=== PATIENT | male | born 1970 | race Caucasian/White ===

== ENCOUNTER 2019-05-05 16:07 | Observation (INO) ==
[2019-05-05] MEDS ORDERED: SODIUM CHLORIDE 0.9% 1000ML 1,000 ML IV ONE (16:27)
[2019-05-05 17:03] LABS: Basophils # (auto) 0.04 K/uL (0-0.2); Basophils % (auto) 0.5 %; Eosinophils # (auto) 0.35 K/uL (0-0.5); Eosinophils % (auto) 4.7 %; Hematocrit (blood only) 37.5 % (42-52); Immature Granulocytes # (auto) 0.02 K/uL (0.00-0.02); Immature Granulocytes % (auto) 0.3 %; Lymphocytes # (auto) 1.72 K/uL (1.2-3.4); Lymphocytes % (auto) 23.1 %; Mean Corpuscular Hemoglobin 29.1 pg (25-34); Mean Corpuscular Hgb Conc 34.7 g/dL (32-36); Mean Corpuscular Volume 84.1 fL (80-100); Mean Platelet Volume 8.5 fL (7.4-10.4); Monocytes # (auto) 0.66 K/uL (0.11-0.59); Monocytes % (auto) 8.9 %; Neutrophils # (auto) 4.65 K/uL (1.4-6.5); Neutrophils % (auto) 62.5 %; Platelet Count 250 K/uL (130-400); RDW Coefficient of Variation 12.5 % (11.5-14.5); RDW Standard Deviation 38.1 fL (36.4-46.3); Red Blood Count 4.46 M/uL (4.7-6.1); White Blood Count 7.44 K/uL (4.8-10.8)
[2019-05-05 17:15] LABS: Appearance Urine Cloudy (Clear); Bacteria Urine Automated Negative (Negative); Bilirubin Urine Negative (Negative); Blood Urine 3+ (Negative); Cast Urine Automated 0 /lpf (0-5); Color Urine Yellow; Glucose Urine UA Negative (Negative); Ketones Urine Negative (Negative); Leukocyte Esterase Urine Trace (Negative); Nitrite Urine Negative (Negative); Protein Urine Negative (Negative); RBC Urine Automated >30 /hpf (0-4); Specific Gravity Urine 1.021 (1.000-1.030); Urobilinogen Urine Negative (Negative)
[2019-05-05 17:20] LABS: Albumin Level 3.4 gm/dl (3.4-5.0); BUN Creatinine Ratio 10.9 (10-20); Calcium 8.7 mg/dl (8.5-10.1); Creatinine Clr Calc Pharmacy 54.1 ml/min; Est GFR (African American) 39.4; Potassium 3.8 mmol/L (3.5-5.1)
[2019-05-05 17:23] LABS: Albumin Globulin Ratio 0.9 (0.9-2); Bilirubin,Total 0.4 mg/dl (0.2-1); Globulin 3.8 gm/dl (2.5-4.0); Total Protein 7.2 gm/dl (6.4-8.2)
--- NOTE | 2019-05-05 18:04 | XRay Report ---
XR KUB/Abdomen 1 view CLINICAL HISTORY: left groin pain eval for stone flank pain COMPARISON STUDY: No previous studies for comparison. FINDINGS: The soft tissues, psoas shadows, renal outlines and intestinal gas pattern appear normal. T here is no evidence for bowel obstruction. No abnormal abdominal calcifications are seen. Possible di stal left ureteral calculus measuring 4 mm versus vascular calcification. IMPRESSION: 4 mm distal left ureteral calculus versus vascular calcification. Otherwise negative noreen dy The above report was generated using voice recognition software. It may contain grammatical, syntax or spelling errors. Electronically signed by: Kyle Diaz M.D. 05/05/2019 6:03 PM
--- NOTE | 2019-05-05 18:45 | History & Physical Report ---
Date of Service May 05, 2019 Assessment & Plan (1) Left ureteral calculus: This is a 49-year-old male with a PMH of hypertension and known left ureteral stone who presents with acute kidney injury. -Found to have left ureteral stone at [place] [facility] on April 26. CT abdomen pelvis without contrast revealed a 3 mm upper left ureteral calculus with minimal left hydronephrosis. -Repeat KUB shows distal migration of stone. Was due for follow-up imaging with [facility] urology nect week -KUB this evening with 4 mm distal left ureteral calculus versus vascular calcification. Otherwise negative study -Afebrile, no leukocytosis, urinalysis with 3+ blood, trace leuk esterase, no bacteria -IV fluids, strain urine, pain control -Routine urology consult for tomorrow. NPO after midnight (2) MADDI (acute kidney injury): Creatinine elevated at 2.2 today (previously 1.4 in January) -In setting of poor PO intake, L ureteral calculus, lisinopril-hctz and toradol use -Fluid resuscitation, hold lisinopril-hctz and toradol -May need repeat CT to evaluate for hydronephrosis. Will defer to urology service -Daily BMP (3) Hypertension: Elevated at 160/107 currently in setting of pain -Holding lisinopril/hctz -PRN hydralazine for SBP >170 DVT Ppx: SCDs for now Code status: FULL PCP: Has been seeing Mer Moore at [place]. Used to follow with Dr. Farmer. Dispo: Observation med surg. Patient seen in collaboration with Dr. Jack. Please see addendum. History of Present Illness Chief Complaint: maddi, renal colic Primary Care Provider: NO PCP This is a 49-year-old male with a PMH of hypertension and left ureteral stone who presents with abnormal lab work from PCP. Patient was initially found to have left ureteral stone at [place] [facility] on April 26. CT abdomen pelvis without contrast revealed a 3 mm upper left ureteral calculus with minimal left hydronephrosis. Followed up with Inez Dowell PA-C and [facility] urology in [place] and repeat KUB showed stone moving distally. Has been taking Darden and Toradol for pain control. Was seen by ANOOP Dowell again today for lab work and found to have elevated creatinine at 2.4 (most recent previous creatinine of 1.4 in January). Was told to follow-up in the ED for further evaluation. Was in severe pain over the weekend and had decreased p.o. intake. Still experiencing L suprapubic pain. No fever, chills, dysuria, gross hematuria, urinary urgency or frequency. Denies lightheadedness, visual changes, chest pain, palpitations, shortness of breath, nausea, vomiting, abdominal pain, diarrhea or constipation. Takes lisinopril-hydrochlorothiazide for hypertension. History of kidney stones in the past that he has passed without urological intervention. No known history of chronic kidney disease. Allergies Allergy/AdvReac Type Severity Reaction Status Date / Time amoxicillin Allergy Unknown hives Verified 05/05/19 17:40 Home Medications Home Medications Medication Instructions Recorded Confirmed Type ketorolac 10 mg PO QID PRN 05/05/19 05/05/19 History lisinopril-hydrochlorothiazide 1 tab PO DAILY 05/05/19 05/05/19 History tamsulosin 0.4 mg PO DAILY 05/05/19 05/05/19 History Past Med/Surg History Surgical History H/O wisdom tooth extraction (Chronic) Family History Other Heart disease Hypertension Social History Preferred Language: Khmer marital status: current occupational status: employed Feels Safe at Home: Yes Smoking Status: Never smoker Hx Alcohol Use: Yes Alcohol Intake Frequency: Weekly Hx Substance Use: No Review of Systems Review of Systems: At least ten systems reviewed and negative except as noted in the HPI. Physical Exam Physical Exam: General Appearance: WD/WN, vitals as above, NAD, sitting at side of bed, pleasant, conversing easily Head: normocephalic, atraumatic Eyes: normal inspection, PERRL, conjunctivae normal, anicteric sclerae ENT: external ear and nose normal, oropharynx normal Neck: trachea midline, no thyromegaly normal visual inspection Respiratory: normal respiratory effort, lungs clear to auscultation, no wheeze, rales, rhonchi. Normal insp/exp effort, no accessory muscle use Cardiovascular: regular rate, rhythm, no murmur, normal peripheral pulses. Vessels: no JVD or carotid bruit Chest: normal inspection of chest Abdomen/GI: normal bowel sounds, soft, nontender, no hepatosplenomegaly : + L suprapubic TTP. No CVA tenderness Extremities/Musculoskelatal: no cyanosis or clubbing, extremities motor strength 5/5 Neurologic: PERRL, EOMI, accommodation nl, no face palsy, no dysarthria CN's II-XI intact bilaterally and moves all extremities Psychiatric: A+Ox3, euthymic affect Skin: no rashes, normal color, warm/dry Results & Data Vital Signs (Past 12 Hours) Vital Signs Temp Pulse Pulse Resp BP BP Pulse Ox 05/05/19 18:28 73 20 160/107 H 98 05/05/19 16:10 36.7 C 79 20 162/112 H 98 Laboratory Results Short CBC 05/05/19 Range/Units 16:50 WBC 7.44 (4.8-10.8) K/uL Hgb 13.0 L (14.0-18.0) g/dL Hct 37.5 L (42-52) % Plt Count 250 (130-400) K/uL BMP 05/05/19 16:50 Sodium 140 Potassium 3.8 Chloride 107 Carbon Dioxide 27 BUN 24 H Creatinine 2.21 H Glucose 93 Calcium 8.7 Liver Function 05/05/19 Range/Units 16:50 Total Bilirubin 0.4 (0.2-1) mg/dl AST 14 L (15-37) U/L ALT 34 (12-78) U/L Alkaline Phosphatase 90 (45-117) U/L Albumin 3.4 (3.4-5.0) gm/dl Urine 05/05/19 Range/Units 16:54 Urine Color Yellow Urine Appearance Cloudy A (Clear) Urine pH 7.0 (4.5-7.5) Ur Specific [place] 1.021 (1.000-1.030) Urine Protein Negative (Negative) Urine Glucose (UA) Negative (Negative) Diagnostic Findings KUB XR: IMPRESSION: 4 mm distal left ureteral calculus versus vascular calcification. Otherwise negative study Supervising Physician Co-Signing Physician Notes I saw this patient with the physician residential living assistant, I participated in the history, physical, review of systems, and physical exam. I reviewed the medications with the patient and the physician residential living assistant and helped reconcile the medications. I helped take a detailed family and social history as well. I formulated the assessment and plan personally with the physician residential living assistant and went over it with the patient. ROS-No Headache, No Visual Changes, No Nausea, No Vomiting, No Fever, No Chills, No Neck Pain or Stiffness, No Chest Pain, No Palpitations, No SOB, No BEDOYA, No Cough, No Sputum, No Wheezing, No Abdominal Pain, No Diarrhea, No Hematemesis, No Hemoptysis, No Unexpected Weight Loss, No Flank pain, No Melena, No Hematochezia, No Frequency, No Urgency, No Burning, No Hematuria, No Rashes, No Diaphoresis. Appetite is Normal Physical Exam Gen-AAO x 3, NAD, Afebrile Head-NCAT, EOMI, PERRLA, Anicteric Sclera, No Posterior Pharyngeal Erythema Neck-Supple, No JVD, No Thyromegaly, No Masses, No LAD, No Bruits Lungs-Clear to Auscultation Bilaterally, No Rales, No Rhonchi, No Wheezing, No Crepitus Chest-No S4, +S1, +S2, No S3, No Murmurs, No Rubs, No Gallops, No Ectopy Abdomen-Soft, Bowel Sounds Present, Non Tender, Non Distended, No Hepatomegaly, No Splenomegaly, No Palpable Masses, No Rebound, No Rigidity, No Guarding Musculoskeletal-Full Range of Motion Bilaterally, No CVAT Extremities-No Cyanosis, No Clubbing, No Edema Nuero-Cranial Nerves II-XII grossly intact, Motor WNL, DTRs WNL, Strength WNL, Non Focal Psych-Normal Mood
[2019-05-05] MEDS ORDERED: ACETAMINOPHEN 325 MG TAB PO PRN (19:52)
[2019-05-05] MEDS ORDERED: POLYETHYLENE (MIRALAX) 17 GM PACK PO PRN (19:52)
[2019-05-05] MEDS ORDERED: ONDANSETRON INJ 2 MG/ML 2 ML VIAL IV PRN (19:52)
[2019-05-05] MEDS ORDERED: HydrALAZINE 10 MG TAB PO PRN (19:52)
[2019-05-05] MEDS: SODIUM CHLORIDE 0.9% 1000ML 1,000 ML IV SCH (20:16)
[2019-05-05] MEDS: MoRPHine SULFATE 4 MG/ML 1 ML CARP\\VIAL IV PRN (20:56)
--- NOTE | 2019-05-05 21:43 | Emergency Department Note ---
Entered by Jojo Farmer acting as a scribe for History of Present Illness General Chief complaint: Back Injury/Pain Stated complaint: KIDNEY, LOWER LEFT BACK PAIN Source: patient Mode of arrival: ambulatory Limitations: no limitations History of Present Illness Provider complaint: Kidney stone Onset (ago): day(s) 9 Location: abdomen (left lower quadrant) Pain Consistency: + other (persistent) Maximum Pain Intensity: 5 Quality: + other (kidney stone) Relieved By: + medication (Toradol) Associated symptoms: + other (Denies: burning urination); no fever/chills and no nausea/vomiting The patient is a 49 year old male with a history of hypertension who presents to the Emergency Room with complaints of a persistent left-sided kidney stone diagnosed by CT on April 26 in [place]. The patient reports that he had x-rays performed 3 days ago that showed that his stone moved, although he is unsure where it moved to. He states that he also had blood work performed by [facility] yesterday and was told that his renal function appears concerning. Per his [facility] records, the patient's creatinine was 2.4 and he had a BUN of 22. His creatinine was reported to be 1.4 2 months ago. The patient explains that his pain has now migrated from his back to his left lower abdominal quadrant. It is much more manageable at this time. He states that his pain has been controlled by taking Toradol as needed and Flomax. He adds that he has been trying to increase his fluid intake although he is still probably not consuming enough, and he notes that has not experienced any fevers, vomiting, and burning urination. He reports that he is supposed to see his urologist again in 4 days for follow up. Home Medications Home Medications Medication Instructions Recorded Confirmed Type ketorolac 10 mg PO QID PRN 05/05/19 05/05/19 History lisinopril-hydrochlorothiazide 1 tab PO DAILY 05/05/19 05/05/19 History tamsulosin 0.4 mg PO DAILY 05/05/19 05/05/19 History Allergies Allergy/AdvReac Type Severity Reaction Status Date / Time amoxicillin Allergy Unknown hives Verified 05/05/19 17:40 Past Med/Surg History Medical History Kidney stones (Chronic) Hypertension (Chronic) Left ureteral stone (Acute) Surgical History H/O wisdom tooth extraction (Chronic) Family History Other Heart disease Hypertension Social History Preferred Language: Macedonian Beliefs That Will Affect Care: None marital status: Current Living Situation: Spouse current occupational status: employed Other Information That Helps Us Care for You: No Feels Safe at Home: Yes Safety Concerns: Feels Safe At This Time Smoking Status: Never smoker Hx Alcohol Use: Yes Alcohol Intake Frequency: Weekly Hx Substance Use: No Review of Systems See HPI for pertinent positives & negatives. and A total of 10 systems reviewed and were otherwise negative Physical Exam Vital Signs Vital Signs - 24 hr 05/05/19 16:10 05/05/19 18:28 Temperature 36.7 C Temperature Source Oral Sepsis Recent Fever Within 48 Hours No Sepsis New/Unexplained Change in Mental Status No Sepsis Action Taken by Nursing No Action Required Pulse Rate 79 Pulse Rate [Right Finger] 73 Pulse Rhythm [Right Finger] Regular Respiratory Rate 20 20 Respiratory Effort / Characteristics Non-Labored Respiratory Depth Normal Blood Pressure 162/112 H Blood Pressure [Right Arm] 160/107 H Blood Pressure Mean 128 Blood Pressure Mean [Right Arm] 124 Blood Pressure Position [Right Arm] Lying Pulse Oximetry 98 98 Oxygen Delivery Method Room Air Room Air Constitutional: Vital signs reviewed. Eyes: Pupils are equal round reactive to light. Conjunctiva are noninjected. ENT: Pharynx is clear without erythema or exudate. Mucous membranes are moist. Neck supple without meningeal signs. Respiratory: Clear to auscultation bilaterally. Breath sounds are equal bilaterally. Cardiovascular: Regular rate and rhythm. No rubs or gallops. GI: Soft, nondistended and nontender. Bowel sounds are present. Musculoskeletal: No peripheral edema. No lower extremity tenderness. No CVA tenderness. Integumentary: No cyanosis. Neurological: The patient is awake and alert. No focal deficits. Psychiatric: Normal affect. Course 162: The patient was evaluated in room B7, and a complete history and physical examination were performed. 172: I checked on the patient and spoke to him about his test results. 174: I reviewed the patient's case with Laurent Mclaughlin PA-C. Dr. Jack - Laurent Birmingham will evaluate the patient for further management. Consultations Consultation #1: I reviewed the patient's case with Laurent Mclaughlin PA-C. Dr. Jack - Laurent Birmingham will evaluate the patient for further management. Time: 17:44 Administered Medications Sodium Chloride (Nss 1000ml) 1,000 mls @ 125 mls/hr IV .Q8H LEAH Stop: 06/04/19 19:51 Last Admin: 05/05/19 20:16 Dose: 125 mls/hr Documented by: [id number] Morphine Sulfate (Morphine Sulfate) 4 mg IV Q4H PRN PRN Reason: Pain Stop: 05/19/19 19:51 Last Admin: 05/05/19 20:56 Dose: 4 mg Documented by: [id number] Discontinued Medications Sodium Chloride (Nss 1000ml) 1,000 mls @ 999 mls/hr IV .Q1H1M ONE Stop: 05/05/19 17:27 Last Infusion: 05/05/19 17:56 Dose: 0 mls/hr Documented by: [id number] Admin: 05/05/19 16:54 Dose: 999 mls/hr Documented by: [id number] Medical Decision Making Differential Diagnosis Differential diagnosis includes: kidney stone, obstructive uropathy, MADDI, dehydration, electrolyte abnormality. Medical Records Attestation: I reviewed the patient's medical records. I did perform a limited focused review of portions of the patient's old chart on the electronic medical record. The patient has had no recent pertinent visits to this hospital. Home Medications Current Medication List: was personally reviewed by me Laboratory Data Attestation: I reviewed the patient's lab results. Result diagrams: 05/05/19 16:50 05/05/19 16:50 Lab Results 05/05/19 05/05/19 05/05/19 Range/Units 16:50 16:50 16:54 WBC 7.44 (4.8-10.8) K/uL RBC 4.46 L (4.7-6.1) M/uL Hgb 13.0 L (14.0-18.0) g/dL Hct 37.5 L (42-52) % MCV 84.1 (80-100) fL MCH 29.1 (25-34) pg MCHC 34.7 (32-36) g/dL RDW Std Deviation 38.1 (36.4-46.3) fL RDW Coeff of Connie 12.5 (11.5-14.5) % Plt Count 250 (130-400) K/uL MPV 8.5 (7.4-10.4) fL Immature Gran % (Auto) 0.3 % Neut % (Auto) 62.5 % Lymph % (Auto) 23.1 % [place] % (Auto) 8.9 % Eos % (Auto) 4.7 % Baso % (Auto) 0.5 % Immature Gran # (Auto) 0.02 (0.00-0.02) K/uL Neut # (Auto) 4.65 (1.4-6.5) K/uL Lymph # (Auto) 1.72 (1.2-3.4) K/uL [place] # (Auto) 0.66 H (0.11-0.59) K/uL Eos # (Auto) 0.35 (0-0.5) K/uL Baso # (Auto) 0.04 (0-0.2) K/uL Sodium 140 (136-145) mmol/L Potassium 3.8 (3.5-5.1) mmol/L Chloride 107 (98-107) mmol/L Carbon Dioxide 27 (21-32) mmol/L Anion Gap 6.0 (3-11) BUN 24 H (7-18) mg/dl Creatinine 2.21 H (0.6-1.4) mg/dl Est Cr Clr Drug Dosing 54.1 ml/min Est GFR ( Amer) 39.4 Est GFR (Non-Af Amer) 34.0 BUN/Creatinine Ratio 10.9 (10-20) Glucose 93 (70-99) mg/dl Calcium 8.7 (8.5-10.1) mg/dl Total Bilirubin 0.4 (0.2-1) mg/dl AST 14 L (15-37) U/L ALT 34 (12-78) U/L Alkaline Phosphatase 90 (45-117) U/L Total Protein 7.2 (6.4-8.2) gm/dl Albumin 3.4 (3.4-5.0) gm/dl Globulin 3.8 (2.5-4.0) gm/dl Albumin/Globulin Ratio 0.9 (0.9-2) Urine Color Yellow Urine Appearance Cloudy A (Clear) Urine pH 7.0 (4.5-7.5) Ur Specific [place] 1.021 (1.000-1.030) Urine Protein Negative (Negative) Urine Glucose (UA) Negative (Negative) Urine Ketones Negative (Negative) Urine Blood 3+ H (Negative) Urine Nitrite Negative (Negative) Urine Bilirubin Negative (Negative) Urine Urobilinogen Negative (Negative) Ur Leukocyte Esterase Trace H (Negative) Urine WBC (Auto) 5-10 H (0-5) /hpf Urine RBC (Auto) >30 H (0-4) /hpf U Hyaline Cast (Auto) 0 (0-5) /lpf U Epithel Cells (Auto) 5-10 H (0-5) /lpf Urine Bacteria (Auto) Negative (Negative) Imaging Data Radiologist's Impression: Radiology results as stated below per my review and the radiologist's interpretation: XR KUB/Abdomen 1 view CLINICAL HISTORY: left groin pain eval for stone flank pain COMPARISON STUDY: No previous studies for comparison. FINDINGS: The soft tissues, psoas shadows, renal outlines and intestinal gas pattern appear normal. There is no evidence for bowel obstruction. No abnormal abdominal calcifications are seen. Possible distal left ureteral calculus measuring 4 mm versus vascular calcification. IMPRESSION: 4 mm distal left ureteral calculus versus vascular calcification. Otherwise negative study The above report was generated using voice recognition software. It may contain grammatical, syntax or spelling errors. Electronically signed by: Kyle Diaz M.D. 05/05/2019 6:03 PM Blood Pressure Blood Pressure Findings: Elevated blood pressure Blood Pressure Disposition: Referred to patients primary care provider [facility] Narrative I did evaluate the patient as noted above. The patient was sent here due to having obstructive uropathy with an elevated creatinine yesterday. He states that his pain is still there but better than it previously was. He also states he has not been drinking very much since he was diagnosed with a kidney stone. He also states he has been on Toradol and Flomax as an outpatient. IV access was established. I did treat him with a liter normal saline IV. I did order and personally reviewed the images of the patient's KUB x-ray as described above. He has a 4 mm distal stone on the left side. I did order a urine analysis. He has hematuria but no evidence of infection. I did order and review the patient's blood work as noted in the electronic medical record. His creatinine is 2.2 here. He is slightly anemic. His white count is not elevated. I did discuss the test results with the patient. I did recommend hospitalization for further care and evaluation. I did discuss the case with the hospitalist and special education case manager. Impression & Plan MADDI (acute kidney injury), Renal colic, Obstructive uropathy Discharge Plan Visit Data *Final* Discharge Date/Time: 05/05/19 19:10 Chief Complaint: Back Injury/Pain Stated Complaint: KIDNEY, LOWER LEFT BACK PAIN ED Provider: Andrews Earl Discharge Problem: MADDI (acute kidney injury), Renal colic, Obstructive uropathy Patient Disposition: Admitted As Inpatient Discharge Instructions Interventions: ED Discharge Assessment Last Done: 05/05/19 19:10 The scribe's documentation has been prepared under my direction and personally reviewed by me in its entirety. I confirm that the note above accurately reflects all work, treatment, procedures, and medical decision making performed by me.
[2019-05-06] MEDS: SODIUM CHLORIDE 0.9% 1000ML 1,000 ML IV SCH ×2 (04:14→12:32)
[2019-05-06] MEDS: MoRPHine SULFATE 4 MG/ML 1 ML CARP\\VIAL IV PRN (04:17)
[2019-05-06 05:23] LABS: Hematocrit (blood only) 34.8 % (42-52); Hemoglobin 12.2 g/dL (14.0-18.0); Mean Corpuscular Hemoglobin 28.9 pg (25-34); Mean Corpuscular Hgb Conc 35.1 g/dL (32-36); Mean Corpuscular Volume 82.5 fL (80-100); Mean Platelet Volume 8.1 fL (7.4-10.4); Platelet Count 255 K/uL (130-400); RDW Coefficient of Variation 12.5 % (11.5-14.5); RDW Standard Deviation 37.6 fL (36.4-46.3); Red Blood Count 4.22 M/uL (4.7-6.1)
[2019-05-06 05:48] LABS: BUN Creatinine Ratio 10.6 (10-20); Calcium 8.4 mg/dl (8.5-10.1); Creatinine Clr Calc Pharmacy 57.9 ml/min; Est GFR (African American) 43.1; Est GFR (Non-African American) 37.2; Potassium 4.2 mmol/L (3.5-5.1)
[2019-05-06] MEDS ORDERED: CIPROFLOXACIN / D5W 200 MG/100 ML BAG IV SCH (06:00)
--- NOTE | 2019-05-06 07:23 | Urology Consultation ---
Date of Consultation May 06, 2019 Assessment & Plan (1) Left ureteral calculus: A/P 49 yo male with L distal ureteral stone, renal insufficiency. Symptoms tolerable, but renal insufficiency represents a relative failure of conservative management. Offered acute intervention in the form of cystoscopy, left retrograde pyelography, ureteroscopy with laser lithotripsy, basket stone extraction and stent placement - accepts. Risks and benefits as well as symptoms of stent irritation reviewed. Cipro paving contractor to OR. Will proceed to follow my first case of day. After intervention patient should be stable for DC home from a perspective - will arrange for outpatient follow-up. (2) MADDI (acute kidney injury): History of Present Illness Reason for Consultation: L distal ureteral stone with renal failure. Attending Physician: Kalen Hendrickson MD History of Present Illness 49 yo male, last seen by > 20 years ago, admitted for his 4th lifelong stone episode. He notes his pain started a couple of weeks ago, seen via the ER in [place], noted to have a 3-4 mm L proximal stone. He was seen in [place] by a PA, MET trialed. His symptoms worsened and repeat bloodwork suggested deterioration in his renal function. He presented locally and KUB suggested distal migration of his stone. However Cr has increased from a normal baseline to >2 despite IVF. His symptoms are partially control but he remains symptomatic despite IV meds. He is NPO this AM for possible intervention. consultation requested to assist with his care. Allergies Allergy/AdvReac Type Severity Reaction Status Date / Time amoxicillin Allergy Unknown hives Verified 05/05/19 17:40 Home Medications Home Medications Medication Instructions Recorded Confirmed Type ketorolac 10 mg PO QID PRN 05/05/19 05/05/19 History lisinopril-hydrochlorothiazide 1 tab PO DAILY 05/05/19 05/05/19 History tamsulosin 0.4 mg PO DAILY 05/05/19 05/05/19 History Patient History Medical History Kidney stones (Chronic) Hypertension (Chronic) Left ureteral stone (Acute) Renal failure Surgical History H/O wisdom tooth extraction (Chronic) Family History Other Heart disease Hypertension Social History Preferred Language: Portuguese Beliefs That Will Affect Care: None marital status: Current Living Situation: Spouse current occupational status: employed Other Information That Helps Us Care for You: No Feels Safe at Home: Yes Safety Concerns: Feels Safe At This Time Smoking Status: Never smoker Hx Alcohol Use: Yes Alcohol Intake Frequency: Weekly Hx Substance Use: No Review of Systems Constitutional: no fever and no chills Eyes: no diplopia Ear, Nose, Mouth, Throat: no ear trauma Respiratory: no hemoptysis Cardiovascular: no chest pain Gastrointestinal: + abdominal pain Genitourinary: + urinary frequency Musculoskeletal: + back pain Integumentary: no acne and no boil Neurologic: no localized weakness and no paralysis Psychiatric: no hopelessness Hematologic / Lymphatic: no coagulopathy and no lymphadenopathy Allergy / Immunological: no tongue swelling Physical Exam Constitutional: well developed and well nourished; no acute distress Eyes: eyes not dysmorphic ENMT: Ears: no external ear abnormality Neck: trachea midline; no anterior neck swelling Respiratory: no respiratory distress and does not use accessory muscles Cardiovascular: Vessels: radial pulses present Gastrointestinal (Abdomen): Inspection/Auscultation: abdomen not distended Percussion/Palpation: abdomen soft; abdomen nontender Musculoskeletal: Head/Neck/Chest: normocephalic and neck supple Skin: normal turgor Neurologic: awake; not obtunded Psychiatric: Orientation: oriented x 3 Lymphatic: no lymphadenopathy Results & Data Vital Signs (Past 12 Hours) Vital Signs Temp Pulse Resp BP Pulse Ox 05/05/19 23:01 36.7 C 71 16 130/83 98 05/05/19 19:50 36.7 C 75 14 159/102 H 97 Laboratory Results Laboratory Results - last 48 hr 05/05/19 05/05/19 05/05/19 16:50 16:50 16:54 WBC 7.44 RBC 4.46 L Hgb 13.0 L Hct 37.5 L MCV 84.1 MCH 29.1 MCHC 34.7 RDW Std Deviation 38.1 RDW Coeff of Connie 12.5 Plt Count 250 MPV 8.5 Immature Gran % (Auto) 0.3 Neut % (Auto) 62.5 Lymph % (Auto) 23.1 [place] % (Auto) 8.9 Eos % (Auto) 4.7 Baso % (Auto) 0.5 Immature Gran # (Auto) 0.02 Neut # (Auto) 4.65 Lymph # (Auto) 1.72 [place] # (Auto) 0.66 H Eos # (Auto) 0.35 Baso # (Auto) 0.04 Sodium 140 Potassium 3.8 Chloride 107 Carbon Dioxide 27 Anion Gap 6.0 BUN 24 H Creatinine 2.21 H Est Cr Clr Drug Dosing 54.1 Est GFR ( Amer) 39.4 Est GFR (Non-Af Amer) 34.0 BUN/Creatinine Ratio 10.9 Glucose 93 Calcium 8.7 Total Bilirubin 0.4 AST 14 L ALT 34 Alkaline Phosphatase 90 Total Protein 7.2 Albumin 3.4 Globulin 3.8 Albumin/Globulin Ratio 0.9 Urine Color Yellow Urine Appearance Cloudy A Urine pH 7.0 Ur Specific [place] 1.021 Urine Protein Negative Urine Glucose (UA) Negative Urine Ketones Negative Urine Blood 3+ H Urine Nitrite Negative Urine Bilirubin Negative Urine Urobilinogen Negative Ur Leukocyte Esterase Trace H Urine WBC (Auto) 5-10 H Urine RBC (Auto) >30 H U Hyaline Cast (Auto) 0 U Epithel Cells (Auto) 5-10 H Urine Bacteria (Auto) Negative 05/06/19 05/06/19 04:55 04:55 WBC 7.30 RBC 4.22 L Hgb 12.2 L Hct 34.8 L MCV 82.5 MCH 28.9 MCHC 35.1 RDW Std Deviation 37.6 RDW Coeff of Connie 12.5 Plt Count 255 MPV 8.1 Immature Gran % (Auto) Neut % (Auto) Lymph % (Auto) [place] % (Auto) Eos % (Auto) Baso % (Auto) Immature Gran # (Auto) Neut # (Auto) Lymph # (Auto) [place] # (Auto) Eos # (Auto) Baso # (Auto) Sodium 139 Potassium 4.2 Chloride 108 H Carbon Dioxide 27 Anion Gap 4.0 BUN 22 H Creatinine 2.05 H Est Cr Clr Drug Dosing 57.9 Est GFR ( Amer) 43.1 Est GFR (Non-Af Amer) 37.2 BUN/Creatinine Ratio 10.6 Glucose 84 Calcium 8.4 L Total Bilirubin AST ALT Alkaline Phosphatase Total Protein Albumin Globulin Albumin/Globulin Ratio Urine Color Urine Appearance Urine pH Ur Specific [place] Urine Protein Urine Glucose (UA) Urine Ketones Urine Blood Urine Nitrite Urine Bilirubin Urine Urobilinogen Ur Leukocyte Esterase Urine WBC (Auto) Urine RBC (Auto) U Hyaline Cast (Auto) U Epithel Cells (Auto) Urine Bacteria (Auto) PG Care Time/CCT Total # of Minutes Spent Total Time Spent with Patient: Total time spent is greater than 50% in coordination of care (as documented) at patient's floor/unit and/or counseling patient:
--- NOTE | 2019-05-06 07:24 | Anesthesiology Consultation ---
Date of Service May 06, 2019 Assessment & Plan (1) Encounter for pre-operative examination: Chart Review Chart Review: Acceptable Risk for Surgery History Surgery Operation Date: 05/06/19 10:00 Proposed Procedures p Cystoscopy(Left) - Mikie Alegre MD Height/Weight Height: 5 ft 11 in Weight: 119.431 kg Allergies Allergy/AdvReac Type Severity Reaction Status Date / Time amoxicillin Allergy Unknown hives Verified 05/05/19 17:40 Medications Home Medications Medication Instructions Recorded Confirmed Last Taken ketorolac 10 mg PO QID PRN 05/05/19 05/05/19 Unknown lisinopril-hydrochlorothiazide 1 tab PO DAILY 05/05/19 05/05/19 Unknown tamsulosin 0.4 mg PO DAILY 05/05/19 05/05/19 Unknown Active Medications Generic Name Dose Route Start Last Admin Trade Name Freq PRN Reason Stop Dose Admin Sodium Chloride 1,000 mls @ 125 mls/hr 05/05/19 19:52 05/06/19 05:39 Nss 1000ml IV 06/04/19 19:51 125 mls/hr .Q8H LEAH Infusion Morphine Sulfate 4 mg 05/05/19 19:52 05/06/19 04:17 Morphine Sulfate IV 05/19/19 19:51 4 mg Q4H PRN Administration Pain NPO Date Last Intake of Fluids: 05/05/19 Time Last Intake of Fluids: 23:59 Date Last Intake of Solids: 05/05/19 Time Last Intake of Solids: 23:59 Past Medical History Medical History Kidney stones (Chronic) Hypertension (Chronic) Left ureteral stone (Acute) Anemia Renal failure Past Family History Family History Other Heart disease Hypertension Past Surgical History Surgical History H/O wisdom tooth extraction (Chronic) Social History Smoking Status: Never smoker Hx Alcohol Use: Yes alcohol intake frequency: a few times a month Hx Substance Use: No substance use type: does not use Physical Exam Vital Signs Last Vital Signs Temp 36.7 C 05/05/19 23:01 Pulse 71 05/05/19 23:01 Resp 16 05/05/19 23:01 BP 130/83 05/05/19 23:01 Pulse Ox 98 05/05/19 23:01 Testing Laboratory Results 05/06/19 04:55 05/06/19 04:55 Urine Color Yellow 05/05/19 16:54 Urine Appearance Cloudy (Clear) A 05/05/19 16:54 Urine pH 7.0 (4.5-7.5) 05/05/19 16:54 Ur Specific [place] 1.021 (1.000-1.030) 05/05/19 16:54 Urine Protein Negative (Negative) 05/05/19 16:54 Urine Glucose (UA) Negative (Negative) 05/05/19 16:54 Urine Ketones Negative (Negative) 05/05/19 16:54 Urine Nitrite Negative (Negative) 05/05/19 16:54 Ur Leukocyte Esterase Trace (Negative) H 05/05/19 16:54 Urine WBC (Auto) 5-10 /hpf (0-5) H 05/05/19 16:54 Urine RBC (Auto) >30 /hpf (0-4) H 05/05/19 16:54 U Hyaline Cast (Auto) 0 /lpf (0-5) 05/05/19 16:54 U Epithel Cells (Auto) 5-10 /lpf (0-5) H 05/05/19 16:54 Urine Bacteria (Auto) Negative (Negative) 05/05/19 16:54
[2019-05-06] MEDS ORDERED: DEXAMETHASONE SOD INJ 4 MG/ML VIAL ONE (08:22)
[2019-05-06] MEDS ORDERED: ONDANSETRON INJ 2 MG/ML 2 ML VIAL ONE (08:22)
[2019-05-06] MEDS ORDERED: MIDAZOLAM HCL 1 MG/ML 2ML VIAL ONE (08:22)
[2019-05-06] MEDS ORDERED: fentaNYL citrate 100 MCG/2 ML VIAL ONE (08:22)
[2019-05-06] MEDS ORDERED: PROPOFOL IV EMULSION 10 MG/ML 20 ML VIAL IV ONE (08:22)
[2019-05-06] MEDS ORDERED: LIDOCAINE HCL 2% 2 ML VIAL/AMP(20MG/ML) INFIL ONE (08:22)
[2019-05-06] MEDS ORDERED: TAMSULOSIN HCL 0.4 MG CAP PO SCH (09:00)
[2019-05-06] MEDS ORDERED: fentaNYL citrate 100 MCG/2 ML VIAL IV PRN (10:34)
[2019-05-06] MEDS ORDERED: ONDANSETRON INJ 2 MG/ML 2 ML VIAL IV PRN (10:34)
[2019-05-06] MEDS ORDERED: ATROPINE SULFATE 0.1 MG/ML 10ML SYR IV PRN (10:34)
[2019-05-06] MEDS ORDERED: LABETALOL HCL IV 5 MG/ML 20ML IV PRN (10:34)
--- NOTE | 2019-05-06 10:41 | Operative Report ---
PG Post Operative Report Pre & Post Diagnosis Operation Date: 05/06/19 10:00 Preoperative diagnosis: Left distal ureteral stone with renal failure. Postoperative diagnosis: Same. Procedure: Cystoscopy, left retrograde pyelography, left semirigid ureteroscopy with laser lithotripsy, basket stone extraction, left ureteral stent placement. Surgeon: Dr. Mikie Alegre. Production Finisher: None. Specimen sent to pathology: Left ureteral stone fragments for chemical analysis. Drains left in place: 6 [place] 28 centimeters loop stent on the left-hand side. EBL: Minimal. Findings: Left distal ureteral stone fragmented and removed intact, good stent position on fluoroscopic examination I identified the patient and participated in the time-out.: Yes Procedure Operation Date: 05/06/19 10:00 Brief history: Patient is a pleasant 49-year-old male with a history of stone passage in the past who has been having difficulties with a left-sided stone for the past ~2 weeks. Most recently he was noted to have an elevated creatinine with evidence of a left distal ureteral stone on current KUB. Please see urology consultation for further details. He is being brought to the operating room for endoscopic management of his stone seen his renal insufficiency. Intravenous ciprofloxacin is provided for antibiotic coverage. Procedure: Patient was properly identified and brought into the operative suite after identification of appropriate consent in the chart. General anesthesia with laryngeal mask was initiated and patient was prepped and draped in standard fashion for this procedure. Full timeout procedure was followed. 22 [place] rigid cystoscope was introduced into the bladder under direct visualization. This demonstrated a normal urethra and a minimally obstructive prostate gland with an elevated bladder neck. Bladder was surveyed in its entirety using 30 and 70 degree lenses demonstrating no intravesical lesions, papillary masses, stones, tumors or other abnormalities. Ureteral orifices were appreciated in the normal anatomic location bilaterally. Left-sided ureteral orifice was noted to be somewhat swollen consistent with a stone being present. Left-sided ureteral orifice was addressed using an open-ended catheter and gentle retrograde pyelography was performed. This demonstrated mild J hooking of the ureter with proximal hydroureteronephrosis, mild to moderate. Sensor tip wire was advanced up to the level of the left kidney and kept until the end of the case as a safety wire. Bladder was drained and cystoscope was removed. Long semirigid ureteroscope was introduced into the bladder and advanced into the left ureter without the need for dilation over a working wire. This demonstrated a stone in the left distal ureter consistent with the patient's imaging findings. This was fragmented into smaller pieces using a 200 m fiber and these were removed using a 0 tip basket to be sent for chemical analysis. Ureteroscope was reintroduced into the left ureter up to the level of the vessels demonstrating no residual stone fragments with proximal swelling hydroureteronephrosis. Mild to moderate inflammation of the ureter was appreciated at the site of the stone. Complete exit ureteroscopy demonstrated no significant ureteral tears or injuries, no ureteral tumors or residual stones. Ureteroscope was removed and cystoscope was backloaded over the safety wire. A 6 [place] 28 cm loop stent was advanced with the stent being present in the upper pole and redundant coils within the bladder. Bladder was drained and cystoscope was removed. Anesthesia was reversed and patient was transferred to the recovery room in stable condition. Follow-up CARE: Patient should be stable for discharge home with a short course of ciprofloxacin, Pyridium for stent irritation and narcotic pain medications as necessary. Will arrange for outside patient cystoscopy and stent removal with KUB before visit in the next 1 to 2 weeks. Patient will be readmitted to the floor to the hospitalist service. Surgeon Mikie Alegre MD Production Finisher None Estimated Blood Loss 0 Findings Consistent with Post-Op Diagnosis Specimens Left ureteral stone fragments for chemical analysis Description of Procedure See above I attest to the content of the Intraoperative Record and any orders documented therein. Any exceptions are noted below.
--- NOTE | 2019-05-06 10:52 | Hospitalist Progress Note ---
Date of Service May 06, 2019 Assessment & Plan (1) Left ureteral calculus: Acute kidney injury secondary to L ureteral stone -Found to have left ureteral stone at [place] [facility] on April 26. CT abdomen pelvis without contrast revealed a 3 mm upper left ureteral calculus with minimal left hydronephrosis. -Repeat KUB shows distal migration of stone. Was due for follow-up imaging with [facility] urology next week -KUB last evening with 4 mm distal left ureteral calculus versus vascular calcification. Otherwise negative study -Afebrile, no leukocytosis, urinalysis with 3+ blood, trace leuk esterase, no bacteria -IV fluids were started and urology was consulted -Update: pt underwent cystoscopy, left retrograde pyelography, left semirigid ureteroscopy with laser lithotripsy, basket stone extraction, and left ureteral stent placement, by Dr. Alegre, this morning (05/06) -Pt tolerated procedure well, received IV ciprofloxacin intraop, plan to d/c home today w/ oral cipro, pyridium, and percocet (for pain control) (2) MADDI (acute kidney injury): Creatinine elevated at 2.2 on admission (previously 1.4 in January), - currently improved (prior to urologic procedure) to 2.05 -In setting of poor PO intake, L ureteral calculus, lisinopril-hctz and toradol use -IVF, holding lisinopril-hctz and toradol -pt's renal function should improve after urologic procedure -pt should not use toradol after discharge, plan to control pain w/ pyridium, tylenol, oxycodon (3) Hypertension: - BP elevated poss. somewhat d/t pain - held lisinopril/hctz on admission - PRN hydralazine for SBP >170 DVT Ppx: SCDs for now Code status: FULL PCP: Has been seeing Mer Moore at [facility]. Used to follow with Dr. Farmer. Dispo: Observation med surg. Subjective No acute events overnight. Patient is lying in bed comfortably, patient's is at the bedside. Denies any fevers, chills, nausea, vomiting, chest pain, difficulty breathing. He is awaiting urologic procedure. Currently denies any significant pain, says he has only some tenderness on palpation at left lower quadrant. Review of Systems Constitutional: no fever, no chills and no fatigue Respiratory: no cough and no dyspnea Cardiovascular: no chest pain, no palpitations and no edema Gastrointestinal: + abdominal pain (Mild abdominal tenderness at left lower quadrant); no nausea and no vomiting Physical Exam Constitutional: well developed and well nourished; no acute distress Eyes: PERRL, conjunctivae normal, anicteric sclerae ENMT: external ear and nose normal, oropharynx normal Neck: trachea midline, no thyromegaly Respiratory: normal respiratory effort, lungs clear to auscultation Auscultation: no rhonchi and no wheezes Cardiovascular: RRR, no murmur, no edema Chest (Breasts): Chest: normal inspection of chest Gastrointestinal (Abdomen): Inspection/Auscultation: abdomen normal to inspection and normal bowel sounds; abdomen not distended Percussion/Palpation: + abdomen tender (to palpation at left lower quadrant) and abdomen soft Musculoskeletal: Head/Neck/Chest: normocephalic, head atraumatic and neck supple Extremities: extremities normal to inspection and strength 5/5 throughout Skin: no rashes, warm and dry Neurologic: PERRL, EOMI, accommodation nl, no face palsy, no dysarthria Psychiatric: A+Ox3, euthymic affect Speech: normal rate/rhythm/volume of speech Genitourinary: + CVA tenderness (L) Lymphatic: no lymphedema and no cervical lymphadenopathy Results & Data Vital Signs (Past 12 Hours) Vital Signs Temp Pulse Resp BP Pulse Ox 05/06/19 07:19 36.7 C 70 16 143/88 H 98 05/05/19 23:01 36.7 C 71 16 130/83 98 Laboratory Results 05/06/19 05/06/19 05/05/19 Range/Units 04:55 04:55 16:54 WBC 7.30 (4.8-10.8) K/uL RBC 4.22 L (4.7-6.1) M/uL Hgb 12.2 L (14.0-18.0) g/dL Hct 34.8 L (42-52) % MCV 82.5 (80-100) fL MCH 28.9 (25-34) pg MCHC 35.1 (32-36) g/dL RDW Std Deviation 37.6 (36.4-46.3) fL RDW Coeff of Connie 12.5 (11.5-14.5) % Plt Count 255 (130-400) K/uL MPV 8.1 (7.4-10.4) fL Immature Gran % (Auto) % Neut % (Auto) % Lymph % (Auto) % [place] % (Auto) % Eos % (Auto) % Baso % (Auto) % Immature Gran # (Auto) (0.00-0.02) K/uL Neut # (Auto) (1.4-6.5) K/uL Lymph # (Auto) (1.2-3.4) K/uL [place] # (Auto) (0.11-0.59) K/uL Eos # (Auto) (0-0.5) K/uL Baso # (Auto) (0-0.2) K/uL Sodium 139 (136-145) mmol/L Potassium 4.2 (3.5-5.1) mmol/L Chloride 108 H (98-107) mmol/L Carbon Dioxide 27 (21-32) mmol/L Anion Gap 4.0 (3-11) BUN 22 H (7-18) mg/dl Creatinine 2.05 H (0.6-1.4) mg/dl Est Cr Clr Drug Dosing 57.9 ml/min Est GFR ( Amer) 43.1 Est GFR (Non-Af Amer) 37.2 BUN/Creatinine Ratio 10.6 (10-20) Glucose 84 (70-99) mg/dl Calcium 8.4 L (8.5-10.1) mg/dl Total Bilirubin (0.2-1) mg/dl AST (15-37) U/L ALT (12-78) U/L Alkaline Phosphatase (45-117) U/L Total Protein (6.4-8.2) gm/dl Albumin (3.4-5.0) gm/dl Globulin (2.5-4.0) gm/dl Albumin/Globulin Ratio (0.9-2) Urine Color Yellow Urine Appearance Cloudy A (Clear) Urine pH 7.0 (4.5-7.5) Ur Specific [place] 1.021 (1.000-1.030) Urine Protein Negative (Negative) Urine Glucose (UA) Negative (Negative) Urine Ketones Negative (Negative) Urine Blood 3+ H (Negative) Urine Nitrite Negative (Negative) Urine Bilirubin Negative (Negative) Urine Urobilinogen Negative (Negative) Ur Leukocyte Esterase Trace H (Negative) Urine WBC (Auto) 5-10 H (0-5) /hpf Urine RBC (Auto) >30 H (0-4) /hpf U Hyaline Cast (Auto) 0 (0-5) /lpf U Epithel Cells (Auto) 5-10 H (0-5) /lpf Urine Bacteria (Auto) Negative (Negative) 05/05/19 05/05/19 Range/Units 16:50 16:50 WBC 7.44 (4.8-10.8) K/uL RBC 4.46 L (4.7-6.1) M/uL Hgb 13.0 L (14.0-18.0) g/dL Hct 37.5 L (42-52) % MCV 84.1 (80-100) fL MCH 29.1 (25-34) pg MCHC 34.7 (32-36) g/dL RDW Std Deviation 38.1 (36.4-46.3) fL RDW Coeff of Connie 12.5 (11.5-14.5) % Plt Count 250 (130-400) K/uL MPV 8.5 (7.4-10.4) fL Immature Gran % (Auto) 0.3 % Neut % (Auto) 62.5 % Lymph % (Auto) 23.1 % [place] % (Auto) 8.9 % Eos % (Auto) 4.7 % Baso % (Auto) 0.5 % Immature Gran # (Auto) 0.02 (0.00-0.02) K/uL Neut # (Auto) 4.65 (1.4-6.5) K/uL Lymph # (Auto) 1.72 (1.2-3.4) K/uL [place] # (Auto) 0.66 H (0.11-0.59) K/uL Eos # (Auto) 0.35 (0-0.5) K/uL Baso # (Auto) 0.04 (0-0.2) K/uL Sodium 140 (136-145) mmol/L Potassium 3.8 (3.5-5.1) mmol/L Chloride 107 (98-107) mmol/L Carbon Dioxide 27 (21-32) mmol/L Anion Gap 6.0 (3-11) BUN 24 H (7-18) mg/dl Creatinine 2.21 H (0.6-1.4) mg/dl Est Cr Clr Drug Dosing 54.1 ml/min Est GFR ( Amer) 39.4 Est GFR (Non-Af Amer) 34.0 BUN/Creatinine Ratio 10.9 (10-20) Glucose 93 (70-99) mg/dl Calcium 8.7 (8.5-10.1) mg/dl Total Bilirubin 0.4 (0.2-1) mg/dl AST 14 L (15-37) U/L ALT 34 (12-78) U/L Alkaline Phosphatase 90 (45-117) U/L Total Protein 7.2 (6.4-8.2) gm/dl Albumin 3.4 (3.4-5.0) gm/dl Globulin 3.8 (2.5-4.0) gm/dl Albumin/Globulin Ratio 0.9 (0.9-2) Urine Color Urine Appearance (Clear) Urine pH (4.5-7.5) Ur Specific [place] (1.000-1.030) Urine Protein (Negative) Urine Glucose (UA) (Negative) Urine Ketones (Negative) Urine Blood (Negative) Urine Nitrite (Negative) Urine Bilirubin (Negative) Urine Urobilinogen (Negative) Ur Leukocyte Esterase (Negative) Urine WBC (Auto) (0-5) /hpf Urine RBC (Auto) (0-4) /hpf U Hyaline Cast (Auto) (0-5) /lpf U Epithel Cells (Auto) (0-5) /lpf Urine Bacteria (Auto) (Negative) Diagnostic Findings KUB 05/05/2019 FINDINGS: The soft tissues, psoas shadows, renal outlines and intestinal gas pattern appear normal. There is no evidence for bowel obstruction. No abnormal abdominal calcifications are seen. Possible distal left ureteral calculus measuring 4 mm versus vascular calcification. IMPRESSION: 4 mm distal left ureteral calculus versus vascular calcification. Otherwise negative study Medications Administered Current Inpatient Medications Acetaminophen (Tylenol) 650 mg PO Q4H PRN PRN Reason: pain/fever Stop: 06/04/19 19:51 Atropine Sulfate (Atropine Sulfate) 0.5 mg IV Q1M PRN PRN Reason: PACU Use-HR<40 &/or Bradycardi Stop: 05/06/19 15:35 Fentanyl Citrate (Fentanyl Citrate) 25 mcg IV Q5M PRN PRN Reason: PACU Use Only-Pain Stop: 05/06/19 15:35 Hydralazine HCl (Apresoline) 10 mg PO Q8H PRN PRN Reason: SBP >170 Stop: 06/04/19 19:51 Sodium Chloride (Nss 1000ml) 1,000 mls @ 125 mls/hr IV .Q8H LEAH Stop: 06/04/19 19:51 Last Infusion: 05/06/19 05:39 Dose: 125 mls/hr Documented by: Ciprofloxacin Lactate (Cipro / D5w) 200 mg in 100 mls @ 100 mls/hr IV PREOP SC H; Protocol Stop: 05/06/19 23:59 Iothalamate Meglumine (Cysto-Conray Ii) 50 ml INSTIL UD [facility] Stop: 06/05/19 10:59 Labetalol HCl (Normodyne) 5 mg IV Q5M PRN PRN Reason: PACU Use-SBP>160 or DBP>100 Stop: 05/06/19 15:35 Morphine Sulfate (Morphine Sulfate) 4 mg IV Q4H PRN PRN Reason: Pain Stop: 05/19/19 19:51 Last Admin: 05/06/19 04:17 Dose: 4 mg Documented by: Ondansetron HCl (Zofran) 4 mg IV Q6H PRN PRN Reason: Nausea Stop: 06/04/19 19:51 Ondansetron HCl (Zofran) 4 mg IV ONCE PRN PRN Reason: PACU Use Only-Nausea/Vomiting Stop: 05/06/19 15:35 Polyethylene Glycol (Miralax Powder Packet) 17 gm PO DAILY PRN PRN Reason: Constipation Stop: 06/04/19 19:51 Tamsulosin HCl (Flomax) 0.4 mg PO DAILY LEAH Stop: 06/05/19 08:59 Last Admin: 05/06/19 07:38 Dose: 0.4 mg Documented by:
[2019-05-06] MEDS ORDERED: IOTHALAMATE MEGLUMINE II 17.2% 250 ML VIAL INSTIL ONE (11:00)
[2019-05-06] MEDS ORDERED: PHENAZOPYRIDINE HCL 200 MG TAB PO PRN (11:20)
--- NOTE | 2019-05-06 11:58 | Fluoroscopy Report ---
FL retrograde includes kub CLINICAL HISTORY: STENT PLACEMENT COMPARISON STUDY: KUB May 05, 2019. FLUOROSCOPY TIME: 52 seconds. FLUOROSCOPIC IMAGES: 5 FINDINGS: These images demonstrate a left retrograde exam with placement of a ureteral stent. Stent a ppears appropriately positioned. IMPRESSION: Fluoroscopy provided for left retrograde exam with ureteral stent insertion. Electronically signed by: Rodolfo Cunningham M.D. 05/06/2019 11:57 AM
[2019-05-06 12:36] VITALS: O2SAT 97
--- NOTE | 2019-05-06 13:45 | Anesthesiology Progress Note ---
Date of Service May 06, 2019 Anesthesia Post Procedure Vital Signs Vital Signs: Temp Pulse Pulse Pulse Resp BP BP 05/06/19 12:44 70 16 128/83 05/06/19 12:15 36.6 C 77 18 138/88 05/06/19 12:05 36.4 C L 83 15 129/92 05/06/19 11:53 77 15 132/84 05/06/19 11:45 74 17 122/82 05/06/19 11:35 74 16 126/72 05/06/19 11:27 36 C L 75 16 122/75 05/06/19 07:19 36.7 C 70 16 143/88 H 05/05/19 23:01 36.7 C 71 16 130/83 05/05/19 19:50 36.7 C 75 14 159/102 H 05/05/19 18:28 73 20 160/107 H 05/05/19 16:10 36.7 C 79 20 162/112 H Pulse Ox 05/06/19 12:44 97 05/06/19 12:15 97 05/06/19 12:05 95 05/06/19 11:53 100 05/06/19 11:45 100 05/06/19 11:35 100 05/06/19 11:27 99 05/06/19 07:19 98 05/05/19 23:01 98 05/05/19 19:50 97 05/05/19 18:28 98 05/05/19 16:10 98 Pain Intensity Left Groin: Pain Intensity: 2 Transfer of Care Handoff Completed per policy Notes Mental Status: alert / awake / arousable Patient Amnestic to Procedure: Yes Nausea / Vomiting: adequately controlled Pain: adequately controlled Airway Patency, RR, SpO2: stable & adequate BP & HR: stable & adequate Hydration State: stable & adequate Anesthetic Complications: no major complications apparent
[2019-05-06 15:23] VITALS: BP 148/83; PULSE 80; TEMP 98.6
--- NOTE | 2019-05-06 17:02 | Discharge Summary ---
Date of Service May 06, 2019 Admission HPI Per Admitting Provider This is a 49-year-old male with a PMH of hypertension and left ureteral stone who presents with abnormal lab work from PCP. Patient was initially found to have left ureteral stone at [place] [facility] on April 26. CT abdomen pelvis without contrast revealed a 3 mm upper left ureteral calculus with minimal left hydronephrosis. Followed up with Inez Dowell PA-C and [facility] urology in [place] and repeat KUB showed stone moving distally. Has been taking [place] and Toradol for pain control. Was seen by ANOOP Dowell again today for lab work and found to have elevated creatinine at 2.4 (most recent previous creatinine of 1.4 in January). Was told to follow-up in the ED for further evaluation. Was in severe pain over the weekend and had decreased p.o. intake. Still experiencing L suprapubic pain. No fever, chills, dysuria, gross hematuria, urinary urgency or frequency. Denies lightheadedness, visual changes, chest pain, palpitations, shortness of breath, nausea, vomiting, abdominal pain, diarrhea or constipation. Takes lisinopril-hydrochlorothiazide for hypertension. History of kidney stones in the past that he has passed without urological intervention. No known history of chronic kidney disease. Admission Exam Per Admitting Provider Gen-AAO x 3, NAD, Afebrile Head-NCAT, EOMI, PERRLA, Anicteric Sclera, No Posterior Pharyngeal Erythema Neck-Supple, No JVD, No Thyromegaly, No Masses, No LAD, No Bruits Lungs-Clear to Auscultation Bilaterally, No Rales, No Rhonchi, No Wheezing, No Crepitus Chest-No S4, +S1, +S2, No S3, No Murmurs, No Rubs, No Gallops, No Ectopy Abdomen-Soft, Bowel Sounds Present, Non Tender, Non Distended, No Hepatomegaly, No Splenomegaly, No Palpable Masses, No Rebound, No Rigidity, No Guarding Musculoskeletal-Full Range of Motion Bilaterally, No CVAT Extremities-No Cyanosis, No Clubbing, No Edema Nuero-Cranial Nerves II-XII grossly intact, Motor WNL, DTRs WNL, Strength WNL, Non Focal Psych-Normal Mood Principal Diagnosis L ureteral stone w/ acute renal failure, HTN, Now s/p left ureteral stent placement Discharge Exam Constitutional well developed and well nourished; no acute distress Eyes PERRL, conjunctivae normal, anicteric sclerae ENMT external ear and nose normal, oropharynx normal Neck trachea midline, no thyromegaly Respiratory normal respiratory effort, lungs clear to auscultation Auscultation: no rhonchi and no wheezes Cardiovascular RRR, no murmur, no edema Chest (Breasts) Chest: normal inspection of chest Gastrointestinal (Abdomen) Inspection/Auscultation: abdomen normal to inspection and normal bowel sounds; abdomen not distended Percussion/Palpation: + abdomen tender (to palpation at left lower quadrant) and abdomen soft Musculoskeletal Head/Neck/Chest: normocephalic, head atraumatic and neck supple Extremities: extremities normal to inspection and strength 5/5 throughout Skin no rashes, warm and dry Neurologic PERRL, EOMI, accommodation nl, no face palsy, no dysarthria Psychiatric A+Ox3, euthymic affect Speech: normal rate/rhythm/volume of speech Genitourinary + CVA tenderness (L) Lymphatic no lymphedema and no cervical lymphadenopathy Discharge Data Allergies Allergy/AdvReac Type Severity Reaction Status Date / Time amoxicillin Allergy Unknown hives Verified 05/05/19 17:40 Consultations 05/05/19 17:45 ED Decision to Admit Stat 05/06/19 08:00 Consult Urology Routine Procedures Performed Operation Date: 05/06/19 10:00 Actual Procedures p Cystoscopy, Left Semi Rigid Ureteroscopy, Left Retrograde Pylogram, Laser Lithotripsy, Basket Stone Extraction, Left Ureteral Stent Placement(Left) - Mikie Alegre MD Ordered Studies 05/06/19 07:00 FL retrograde includes kub Routine Hospital Course (1) Left ureteral calculus: Acute kidney injury secondary to L ureteral stone -Found to have left ureteral stone at [place] [facility] on April 26. CT abdomen pelvis without contrast revealed a 3 mm upper left ureteral calculus with minimal left hydronephrosis. -Repeat KUB shows distal migration of stone. Was due for follow-up imaging with [facility] urology next week -KUB last evening with 4 mm distal left ureteral calculus versus vascular calcification. Otherwise negative study -Afebrile, no leukocytosis, urinalysis with 3+ blood, trace leuk esterase, no bacteria -IV fluids were started and urology was consulted -Update: pt underwent cystoscopy, left retrograde pyelography, left semirigid ureteroscopy with laser lithotripsy, basket stone extraction, and left ureteral stent placement, by Dr. Alegre, this morning (05/06) -Pt tolerated procedure well, received IV ciprofloxacin intraop, plan to d/c home today w/ oral cipro, pyridium, and percocet (for pain control) (2) MADDI (acute kidney injury): Creatinine elevated at 2.2 on admission (previously 1.4 in January) - currently improved w/ IVF (prior to urologic procedure) to 2.05 -In setting of poor PO intake, L ureteral calculus, lisinopril-hctz and toradol use -IVF started, holding lisinopril-hctz and toradol -pt's renal function should improve after urologic procedure -pt should not use toradol after discharge, plan to control pain w/ pyridium, tylenol, oxycodon (3) Hypertension: - BP elevated poss. somewhat d/t pain - held lisinopril/hctz on admission - PRN hydralazine for SBP >170 during admission DVT Ppx: SCDs for now Code status: FULL PCP: Has been seeing Mer Moore at [place]. Used to follow with Dr. Farmer. Dispo: Observation med surg. Total Time Total Time Spent Total Time Spent (In Minutes): 35 min Total Time Includes: Examination of the Patient, Discharge Planning, Medication Reconciliation and Communication With Other Providers Discharge Plan Discharge Items Patient Disposition: Home - Self-Care Reason For Visit: L URETERAL STONE Discharge Diagnosis: L ureteral stone w/ renal failure, now s/p left ureteral stent placement Condition on Discharge: Good Activity: Resume your previous activity Activity Comment: as tolerated Non-emergency contact: Primary Care Provider and Urologist Call non-emergency contact if: you have any medication questions and your symptoms worsen Follow-up/Referrals: PCP,NO [Primary Care Provider] - Diet: Regular and Heart Healthy Addtl Attending Provider Instructions: Take Pyridium for discomfort up to 3 times a day. You can also take Tylenol (not more than total of 3000mg a day). For more severe pain, take Percocet, not more than 3 times a day. Take antibiotic (Ciprofloxacin) for next 3 days, take the first dose this evening. Do not take ketorolac. Do not take your regular blood pressure medication (lisinopril- hydrochlorothiazide) for next 3 days. Instead, take only hydrochlorothiazide. Follow up with your PCP within 1 week. Pending Studies at Discharge: Yes Studies:: chemical analysis of kidney stone Stand-Alone Forms: [facility], Opioid Pain Management, Smoking Cessation Medications and DC Order Prescriptions: New phenazopyridine [Pyridium] 200 mg Tablet 200 mg PO TID PRN (Reason: pain) Qty: 14 RF: 0 ciprofloxacin HCl 500 mg tablet 500 mg PO Q12H 3 Days Qty: 6 RF: 0 hydrochlorothiazide 12.5 mg tablet 12.5 mg PO DAILY Qty: 3 RF: 0 oxycodone-acetaminophen [Percocet] 5-325 mg tablet 1 tab PO Q8H PRN (Reason: pain) Qty: 10 RF: 0 Continued tamsulosin 0.4 mg capsule 0.4 mg PO DAILY RF: 0 Discontinued lisinopril-hydrochlorothiazide 10-12.5 mg tablet 1 tab PO DAILY RF: 0 ketorolac 10 mg Tablet 10 mg PO QID PRN (Reason: Pain) RF: 0 Discharge Orders: Discharge Order (Routine); Ordered 05/06/19 Ordered By: Kalen Harrison/Other Patient Handouts: Kidney Stones, Kidney Stones Prevent, Cystography Retrograde Admission Data Admit Date/Time: 05/05/19 18:43 Attending Provider: Kalen Hendrickson Admit Provider: Cuong Jack Primary Care Provider: PCP,NO Other Providers: Cuong Jack ; Mikie Alegre I.
[2019-05-16 07:57] LABS: Component 2 DNR
== END 2019-05-06 17:17 | disposition home or self-care (01) ==
LOC: 3E 16:07 → ED 16:07 → SUATTDRO 18:43 → 3E 19:10